=== PATIENT | female | born 1940 | race Caucasian/White ===

== ENCOUNTER 2016-11-12 08:29 | Emergency (ER) | payer MEDICARE, OTHER ==
[~2016-11-12] VITALS: Ht 160 cm; Wt 84.5 kg
[~2016-11-12 08:29] MED LIST: ASPI-664 PO; DONE5TAB7 PO; METO-448 PO; MIRT7.5T8 PO; MIRTAZAPINE PO; NAPR-260 PO; [UNRECOGNIZED DRUG - OTHER] PO
[2016-11-12 08:30] VITALS: Ht 160 cm; Wt 84.5 kg
[2016-11-12] MEDS ORDERED: ACETAMINOPHEN 325 MG TAB PO ONE (09:30)
--- NOTE | 2016-11-12 10:03 | ERD ---
ER Documentation Chief Complaint Date/Time DATE: 11/12/16 TIME: 10:00 Chief Complaint LOWER BACK PAIN X 5 DAYS, NO INJURY, FELL 10YRS AGO HPI 76-year-old female with a history of hypertension, hyperlipidemia presents with low back pain that started 5 days ago after she went from a sitting to standing position. She describes it as pressure-like, achy, localized and diffuse in the lumbar region. She has not taken anything for pain, the pain is worse with movement, better with sitting and worse with walking. She has not had any saddle anesthesia, loss of bowel bladder function. She denies any falls, fevers , chills. She denies chest pain, shortness breath. ROS All systems reviewed and are negative except as per history of present illness. Medications Home Meds Active Scripts Acetaminophen* (Tylophen*) 500 Mg Capsule, 1 CAP PO Q6H Y for PAIN AND OR ELEVATED TEMP, #20 CAP Prov:YADIRA STOVER PA-C 11/12/16 Naproxen* (Naprosyn*) 500 Mg Tablet, 500 MG PO BID Y for PAIN AND/OR INFLAMMATION, #30 TAB Prov:SANDEEP PANIAGUA DO 07/05/15 Reported Medications Mirtazapine* (Mirtazapine*) 7.5 Mg Tablet, PO HS, TAB 07/05/15 Donepezil* (Donepezil*) 5 Mg Tablet, PO DAILY, #30 TAB 07/05/15 Aspirin (Low Dose Aspirin) 81 Mg Tablet.dr, 81 MG PO DAILY, #30 TAB 07/05/15 Metoprolol Tartrate* (Lopressor*) 25 Mg Tab, PO DAILY, #60 TAB 07/05/15 Allergies Allergies: Coded Allergies: No Known Allergies (Verified Allergy, Unknown, 07/05/15) PMhx/Soc History of Surgery: Yes (right knee surgery ) Anesthesia Reaction: No Hx Neurological Disorder: No Hx Respiratory Disorders: No Hx Cardiac Disorders: Yes (HTN, HEART ATTACK 2013) Hx Psychiatric Problems: No Hx Miscellaneous Medical Probl: No Hx Alcohol Use: No Hx Substance Use: No Hx Tobacco Use: No Smoking Status: Never smoker Physical Exam Vitals Vital Signs Date Time Temp Pulse Resp B/P Pulse Ox O2 Delivery O2 Flow Rate FiO2 11/12/16 08:30 97.5 68 18 134/64 96 Physical Exam General: Well-developed, well-nourished. The patient appears in no acute distress. HEENT: Head is normocephalic, atraumatic. No scleral icterus. Neck: Supple. Nontender. Lungs: Clear to auscultation. Normal air movement. Heart: Regular rate and rhythm. S1 and S2 are normal. No murmurs, gallops, or rubs. Abdomen: Soft, nontender, nondistended. Bowel sounds are normoactive. Back: There is reproducible tenderness around the column in the lumbar region, there are no step-offs, no rashes. Strength lower extremities 5 out of 5 bilaterally. There is no crepitus. Patient's gait is normal Extremities: No clubbing or cyanosis. Normal pulses. Moving extremities x 4. No weakness. Neurologic: Alert and oriented 3. No focal deficits. Skin: Normal turgor. No rash or lesions. Results 24 hrs Current Medications Medications (Trade) Dose Ordered Sig/Magy Route PRN Reason Start Time Stop Time Status Last Admin Dose Admin Acetaminophen (Tylenol Tab) 650 mg ONCE ONCE PO 11/12/16 09:30 11/12/16 09:31 DC 11/12/16 09:15 DIAGNOSTIC IMAGING REPORT Patient: DEIRDRE SOTOMAYOR : 1940 Age: 76 Sex: F MR #: [id number] DOS: 11/12/16909 Ordering MD: YADIRA STOVER PA-C Location: [facility] Room/Bed: PROCEDURE: XR Lumbar Spine. CLINICAL INDICATION: Lower back pain. TECHNIQUE: X-ray of the lumbar spine were performed including AP, lateral, and coned L5-S1 views was performed. COMPARISON: No prior studies are available for comparison. FINDINGS: SEGMENTATION: There are 5 non-rib bearing lumbar vertebral bodies. LORDOSIS: Within normal limits. VERTEBRAL BODY HEIGHTS: Maintained without evidence of compression fracture. ALLIGNMENT: There is mild retrolisthesis of L3-L4 and mild grade 1 anterolisthesis of L5-S1. DISCS: There is moderate L3-L4, moderate L4-5, and mild L5-S1 disk space narrowing. There are prominent lateral osteophytes at the L3-L4 and L4-5 levels. OSSEOUS STRUCTURES: There is no destructive osseous lesion. SACRUM: The bilateral sacroiliac joints are intact. IMPRESSION: No evidence of compression fracture. Mild grade 1 anterolisthesis of L5-S1 and mild retrolisthesis of L3-L4. Mild to moderate degenerative changes. Further findings as detailed above. RPTAT: PP .Servando Jack MD, MD Date Time Electronically viewed and signed by .Servando Jack MD, MD on 11/12/2016 10:42 Procedures/MDM Medical decision m[age]-year-old female presents with low back pain in the lumbar region after standing up from a sitting position. Patient's pain is reproducible on examination, x-rays of the lumbar spine over the natural anterolisthesis as well degenerative disc disease at L5 and S1. She has reproducible pain on examination to the colon, this was discussed with my attending physician agree that the patient would benefit from radiographic imaging due to the patient's age. The other differentials considered include cauda equina, epidural abscess, shingles, dissection, acute coronary syndrome and among others however unlikely given the patient's history and presentation. The case was reviewed and discussed with Dr. Carter who agrees with the plan of care including labs, treatment, and advanced imaging as appropriate. Patient's blood pressure was elevated (>120/80) but appears stable without evidence of hypertension emergency or urgency. The patient was counseled about the risks of hypertension and urged to pursue outpatient monitoring and therapy within a week with their primary care physician. Departure Diagnosis: Primary Impression: Degenerative disc disease at L5-S1 level Additional Impression: Anterolisthesis Condition: YADIRA De La Rosa PA-C Nov 12, 2016 10:03
--- NOTE | 2016-11-12 10:42 | RADRPT ---
PROCEDURE: XR Lumbar Spine. CLINICAL INDICATION: Lower back pain. TECHNIQUE: X-ray of the lumbar spine were performed including AP, lateral, and coned L5-S1 views w as performed. COMPARISON: No prior studies are available for comparison. FINDINGS: SEGMENTATION: There are 5 non-rib bearing lumbar vertebral bodies. LORDOSIS: Within normal limits. VERTEBRAL BODY HEIGHTS: Maintained without evidence of compression fracture. ALLIGNMENT: There is mild retrolisthesis of L3-L4 and mild grade 1 anterolisthesis of L5-S1. DISCS: There is moderate L3-L4, moderate L4-5, and mild L5-S1 disk space narrowing. There are promin ent lateral osteophytes at the L3-L4 and L4-5 levels. OSSEOUS STRUCTURES: There is no destructive osseous lesion. SACRUM: The bilateral sacroiliac joints are intact. IMPRESSION: No evidence of compression fracture. Mild grade 1 anterolisthesis of L5-S1 and mild retrolisthesis of L3-L4. Mild to moderate degenerative changes. Further findings as detailed above. RPTAT: PP .Servando Jack MD, Date Time Electronically viewed and signed by .Servando Jack MD, on 11/12/2016 10:42 .F/
[2016-11-12] MEDS ORDERED: ACET500C5 PO (10:53)
[2016-11-12 11:20] VITALS: BP 137/65; PULSE 58; RESP 18; TEMP 97.5
== END 2016-11-12 11:23 | disposition home or self-care (01) ==
LOC: FTE 08:29
DX: M51.37 Other intervertebral disc degeneration, lumbosacral region (principal); M43.17 Spondylolisthesis, lumbosacral region; I10 Essential (primary) hypertension; Z79.82 Long term (current) use of aspirin
CPT/HCPCS: 72100

== ENCOUNTER 2017-03-21 10:41 | Emergency (ER) | END 2017-03-21 18:30 | disposition home or self-care (01) ==